=== PATIENT | male | born 1995 | race Two or more races ===

== ENCOUNTER 2017-02-13 16:57 | Emergency (ER) | payer OTHER ==
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
[~2017-02-13 16:57] MED LIST: MOTRIN400 MG PO; PEN-VEE K PO; SUDAFED30 M1 PO
== END 2017-02-13 19:10 | disposition home or self-care (01) ==
LOC: CED 16:57
DX: S16.1XXA Strain of muscle, fascia and tendon at neck level, initial encounter (principal); S30.1XXA Contusion of abdominal wall, initial encounter; S20.219A Contusion of unspecified front wall of thorax, initial encounter; J45.909 Unspecified asthma, uncomplicated; Z91.013 Allergy to seafood; V43.52XA Car driver injured in collision with other type car in traffic accident, initial encounter
CPT/HCPCS: 70450; 71020; 72072; 72125; 74176; 99284